=== PATIENT | male | born 1955 | race Hispanic/Latino ===

== ENCOUNTER → 2021-03-14 | Outpatient (CLI) | payer MEDICARE | END | disposition home or self-care (01) | LOC: RAH 09:05 | PROVIDERS: ATTEND Surgery | DX: K43.9 Ventral hernia without obstruction or gangrene (principal); J98.11 Atelectasis; K76.0 Fatty (change of) liver, not elsewhere classified; K57.30 Diverticulosis of large intestine without perforation or abscess without bleeding; I70.0 Atherosclerosis of aorta; M47.816 Spondylosis without myelopathy or radiculopathy, lumbar region; M43.06 Spondylolysis, lumbar region; K46.9 Unspecified abdominal hernia without obstruction or gangrene | CPT/HCPCS: 74176 ==

== ENCOUNTER 2021-05-30 07:40 | Day surgery (SDC) | payer MEDICARE ==
[2021-05-23 10:30] LABS: BASOPHILS % (AUTO) 0.7 % (0.0-5.0); EOSINOPHILS % (AUTO) 6.7 % (0.0-8.0); HEMATOCRIT 51.8 % (42-54); LYMPHOCYTES % (AUTO) 32.7 % (21.0-51.0); MEAN CORPUSCULAR HEMOGLOBIN 31.7 pg (27.0-33.0); MEAN CORPUSCULAR HGB CONC 33.2 g/dL (32.0-36.0); MEAN CORPUSCULAR VOLUME 95.6 fL (79-99); MONOCYTES % (AUTO) 9.9 % (3.0-13.0); NEUTROPHILS % (AUTO) 49.6 % (40.0-77.0); PLATELET COUNT (AUTO) 209 K/uL (130-400); RED BLOOD CELL COUNT(AUTO) 5.42 MIL/uL (4.50-6.20); RED CELL DISTRIBUTION WIDTH 13.2 % (11.0-15.5); WHITE BLOOD COUNT (AUTO) 7.4 K/uL (4.8-10.8)
[2021-05-23 10:42] LABS: CREATININE 0.8 mg/dL (0.5-1.5); POTASSIUM 4.3 mmol/L (3.5-5.1)
[2021-05-29 13:17] VITALS: BP 158/80
[2021-05-30] VITALS (15 sets, daily range): BP systolic 115–140; BP diastolic 60–83
[~2021-05-30] VITALS: Ht 167.6 cm; Wt 121.9 kg
[~2021-05-30 07:40] MED LIST: IBUP-2077 PO; LISI10TA24 PO
[2021-05-30] MEDS ORDERED: LACTATED RINGERS 1000ML 1,000 ML IV ONE (08:25)
[2021-05-30] MEDS: CEFAZOLIN SODIUM 1 GM VIAL IVP ONE ×2 (08:36→10:30)
[2021-05-30] MEDS ORDERED: FENTANYL CITRATE PF 50 MCG/1 ML 2ML VIAL ONE (10:16)
[2021-05-30] MEDS ORDERED: LIDOCAINE PF 100MG/5ML (2%) SYRINGE 5ML ONE (10:16)
[2021-05-30] MEDS ORDERED: PROPOFOL 10 MG/ML 20ML VIAL IV ONE (10:16)
[2021-05-30] MEDS ORDERED: ROCURONIUM 10MG/1ML SYR 10 MG/ML ML ONE ×2 (10:16→11:15)
[2021-05-30] MEDS ORDERED: SUCCINYLCHOLINE 200MG/10ML SYR ONE (10:16)
[2021-05-30] MEDS ORDERED: MIDAZOLAM HCL 1 MG/ML 2ML VIAL ONE (10:24)
[2021-05-30] MEDS ORDERED: EPHEDRINE SULFATE 50 MG/ML AMPULE ONE (10:44)
[2021-05-30] MEDS ORDERED: BUPIVACAINE/PF 0.5% 30ML VIAL ONE (11:08)
[2021-05-30] MEDS ORDERED: MEPERIDINE-PF 25 MG/ML SYG ONE ×2 (12:31→13:19)
[2021-05-30] MEDS ORDERED: GLYCOPYRROLATE 1 MG/5 ML SYRINGE ONE (12:42)
[2021-05-30] MEDS ORDERED: NEOSTIGMINE 5MG/5ML SYR IV ONE (12:42)
[2021-05-30] MEDS ORDERED: KETOROLAC 30MG VIAL (30MG/ML) ONE (12:42)
[2021-05-30] MEDS ORDERED: ONDANSETRON 4MG INJ ONE (12:43)
[2021-05-30] MEDS ORDERED: FENTANYL CITRATE PF 50 MCG/1 ML 5ML AMP IV ONE (12:46)
[2021-05-30] MEDS ORDERED: PHENYLEPHRINE HCL 10 MG/ML 1ML VIAL IV ONE (12:54)
[2021-05-30] MEDS ORDERED: 0.9%NACL 10ML VIAL ONE (12:54)
== END 2021-05-30 14:40 | disposition home or self-care (01) ==
LOC: DAH 07:40
PROVIDERS: ATTEND Surgery
DX: K43.2 Incisional hernia without obstruction or gangrene (principal); Z20.822 Contact with and (suspected) exposure to COVID-19; E66.01 Morbid (severe) obesity due to excess calories; M15.9 Polyosteoarthritis, unspecified; F17.210 Nicotine dependence, cigarettes, uncomplicated; I10 Essential (primary) hypertension; E78.5 Hyperlipidemia, unspecified; Z68.41 Body mass index [BMI] 40.0-44.9, adult; Z79.899 Other long term (current) drug therapy
CPT/HCPCS: 36415; 49654; 80048; 85025; 87635; 93005; A4215; A4221; A4222; A4223; A4344; A4510; A4600; A4663; A5120; C1781; C9803; G0168; J0330; J0690; J1885; J2001; J2175 ×2; J2250; J2370; J2405; J2704; J2710; J3010 ×2; J3490 ×3; J7030; J7120

== ENCOUNTER → 2021-11-06 | Outpatient (CLI) | payer MEDICARE ==
[~2021-11-06] MED LIST changes: -IBUP-2077 PO; +IOHEXOL-350 75 ML VIAL IV ONE
== END | disposition home or self-care (01) ==
LOC: RAH 09:19
PROVIDERS: ATTEND Surgery
DX: K43.2 Incisional hernia without obstruction or gangrene (principal); K43.9 Ventral hernia without obstruction or gangrene
CPT/HCPCS: 74177; Q9967